=== PATIENT | female | born 2005 | race American Indian/Alaskan Native ===

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

== ENCOUNTER 2025-04-27 04:08 | Emergency (ER) | payer SELFPAY ==
[2025-04-27 04:22] VITALS: BP 114/69; PULSE 106
[2025-04-27 04:44] LABS: BASOPHILS PERCENT AUTO 0.3 % (0.0-1.0); EOSINOPHILS PERCENT AUTO 2.9 % (1.0-3.0); LYMPHOCYTES PERCENT AUTO 44.7 % (20.5-50.1); MONOCYTES PERCENT AUTO 10.0 % (2-8); NEUTROPHILS PERCENT AUTO 42.1 % (42.2-75.2); PLATELET COUNT,PLT 300 10^3/uL (150-450); RED BLOOD CELL COUNT 5.55 10^6/uL (4.2-5.4); WHITE BLOOD CELL COUNT,WBC 6.3 10^3/uL (5.0-10.0)
[2025-04-27 04:52] LABS: APPEARANCE,URINE CLEAR (CLEAR); GLUCOSE,URINE 500 (NEGATIVE); OCCULT BLOOD,URINE NEGATIVE (NEGATIVE)
[2025-04-27 04:54] LABS: AMPHETAMINES,URINE NEGATIVE (NEGATIVE); BARBITURATES,URINE NEGATIVE (NEGATIVE); MDMA (ECSTASY), URINE NEGATIVE (NEGATIVE); METHAMPHETAMINES,URINE NEGATIVE (NEGATIVE); OPIATES,URINE NEGATIVE (NEGATIVE); OXYCODONE,URINE NEGATIVE (NEGATIVE); PHENCYCLIDINE,URINE NEGATIVE (NEGATIVE); TCA,URINE NEGATIVE (NEGATIVE)
[2025-04-27 05:04] LABS: A/G RATIO 1.0; ALANINE AMINOTRANSFERASE,ALT 35.0 U/L (14-59); ASPARTATE AMNIOTRANSFERASE,AST 20.0 U/L (15-37); BILIRUBIN TOTAL 0.2 mg/dL (0.2-1.0); BLOOD UREA NITROGEN,BUN 7.0 mg/dL (7-18); CARBON DIOXIDE,CO2 20.0 mmol/L (21-32); CHLORIDE,CL 100.0 mmol/L (98-107); CREATININE 0.52 mg/dL (0.55-1.02); EST CRCL DRUG DOSING (CG) 137.63 mL/min; GLUCOSE RANDOM 320.0 mg/dL (70-99); POTASSIUM,K 3.9 mmol/L (3.5-5.1); PROTEIN TOTAL,TP 7.9 g/dL (6.4-8.2); SODIUM,NA 132.0 mmol/L (136-145)
[2025-04-27 05:17] LABS: ESTIMATED GFR 137.0 mL/min (>=60)
== END 2025-04-27 06:39 | disposition home or self-care (01) ==
LOC: DL.ED 04:08
DX: R45.851 Suicidal ideations (principal); E11.9 Type 2 diabetes mellitus without complications; Z79.4 Long term (current) use of insulin; Z79.899 Other long term (current) drug therapy
CPT/HCPCS: 36415; 80053; 80143; 80179; 80305-QW; 81003; 81025; 85025; 99284

== ENCOUNTER 2025-09-13 14:31 | Emergency (ER) | payer MEDICAID ==
[2025-09-13 16:26] VITALS: BP 136/89; PULSE 84
== END 2025-09-13 15:24 | disposition home or self-care (01) ==
LOC: DL.ED 14:31
DX: Z32.01 Encounter for pregnancy test, result positive (principal); E11.9 Type 2 diabetes mellitus without complications; E66.9 Obesity, unspecified; Z79.4 Long term (current) use of insulin
CPT/HCPCS: 99281; 99282